=== PATIENT | male | born 1985 | race Caucasian/White ===

== ENCOUNTER 2017-01-26 22:00 | Emergency (ER) | payer OTHER ==
[~2017-01-26] VITALS: Ht 172.7 cm; Wt 82.0 kg
[2017-01-26 22:10] VITALS: Ht 172.7 cm; Wt 82.0 kg
[2017-01-26] MEDS ORDERED: SOD CHLORIDE 0.9% 1,000 ML IV STA (22:48)
[2017-01-26] MEDS ORDERED: ONDANSETRON 4 MG INJ IV STA (22:48)
[2017-01-26] MEDS ORDERED: ACETAMINOPHEN 500 MG TAB PO STA (22:48)
[2017-01-26] MEDS ORDERED: morphine 2 MG INJ IV STA (22:48)
--- NOTE | 2017-01-26 22:55 | ERD ---
ER Documentation Chief Complaint Date/Time DATE: 01/26/17 TIME: 22:53 Chief Complaint fever/abd pain x 1 day HPI 31-year-old male comes in with history of fever, and low right lower quadrant abdominal pain that started this morning. He states it is gradually gotten worse and is radiating to the left lower quadrant, achy, moderate to severe pain. He states that the last time he ate anything was ice cream at around 7 PM , he has had decrease in appetite. He has not had any nausea, vomiting, diarrhea. Denies testicular pain. ROS All systems reviewed and are negative except as per history of present illness. Medications Home Meds Active Scripts Ibuprofen* (Motrin*) 600 Mg Tab, 600 MG PO Q6, #30 TAB Prov:CHITRA ROSARIO PA-C 01/27/17 Hydrocodone/Acetaminophen ([place] 5-325 Tablet) 1 Each Tablet, 1 TAB PO Q6H Y for PAIN, #7 TAB Prov:CHITRA ROSARIO PA-C 01/27/17 Ondansetron (Ondansetron Odt) 4 Mg Tab.rapdis, 4 MG PO Q6H Y for NAUSEA AND/OR VOMITING, #10 TAB Prov:CHITRA ROSARIO PA-C 01/27/17 Allergies Allergies: Coded Allergies: No Known Drug Allergies (Verified Allergy, Unknown, 01/26/17) PMhx/Soc Medical and Surgical Hx: pt denies Medical Hx, pt denies Surgical Hx Hx Alcohol Use: No Hx Substance Use: No Hx Tobacco Use: Yes (1 pack per day) Smoking Status: Current every day smoker Physical Exam Vitals Vital Signs Date Time Temp Pulse Resp B/P Pulse Ox O2 Delivery O2 Flow Rate FiO2 01/27/17 00:49 94 16 101/52 94 Room Air 01/26/17 22:10 101.1 109 20 108/55 99 Physical Exam General: Well-developed, well-nourished. The patient appears in no acute distress. HEENT: Head is normocephalic, atraumatic. No scleral icterus. Neck: Supple. Nontender. Lungs: Clear to auscultation. Normal air movement. Heart: Regular rate and rhythm. S1 and S2 are normal. No murmurs, gallops, or rubs. Abdomen: Soft, patient is tender in the right lower quadrant with peritoneal signs, rebound pain, nondistended. Bowel sounds are normoactive. Extremities: No clubbing or cyanosis. Normal pulses. Moving extremities x 4. No weakness. Neurologic: Alert and oriented 3. No focal deficits. Skin: Normal turgor. No rash or lesions. Result Diagram: 01/26/17 2310 01/26/17 2310 Results 24 hrs Laboratory Tests Test 01/26/17 23:10 White Blood Count 18.610^3/ul Red Blood Count 4.0010^6/ul Hemoglobin 12.8g/dl Hematocrit 36.3% Mean Corpuscular Volume 90.8fl Mean Corpuscular Hemoglobin 32.0pg Mean Corpuscular Hemoglobin Concent 35.3g/dl Red Cell Distribution Width 12.9% Platelet Count 08241^3/UL Mean Platelet Volume 11.6fl Neutrophils % 82.4% Lymphocytes % 10.2% Monocytes % 6.7% Eosinophils % 0.0% Basophils % 0.2% Nucleated Red Blood Cells % 0.0/100WBC Neutrophils # 15.310^3/ul Lymphocytes # 1.910^3/ul Monocytes # 1.310^3/ul Eosinophils # 0.010^3/ul Basophils # 0.010^3/ul Nucleated Red Blood Cells # 0.010^3/ul Urine Color YELLOW Urine Clarity SLIGHTLY CLOUDY Urine pH 5.0 Urine Specific [place] 1.026 Urine Ketones NEGATIVEmg/dL Urine Nitrite NEGATIVEmg/dL Urine Bilirubin NEGATIVEmg/dL Urine Urobilinogen NEGATIVEmg/dL Urine Leukocyte Esterase NEGATIVELeu/ul Urine Microscopic RBC 15/HPF Urine Microscopic WBC 3/HPF Urine Hemoglobin 3+mg/dL Urine Glucose NEGATIVEmg/dL Urine Total Protein NEGATIVEmg/dl Sodium Level 140mmol/L Potassium Level 3.8mmol/L Chloride Level 104mmol/L Carbon Dioxide Level 25mmol/L Anion Gap 15 Blood Urea Nitrogen 12mg/dl Creatinine 0.85mg/dl Glucose Level 99mg/dl Calcium Level 9.8mg/dl Total Bilirubin 1.3mg/dl Direct Bilirubin 0.00mg/dl Indirect Bilirubin 1.3mg/dl Aspartate Amino Transf (AST/SGOT) 30IU/L Alanine Aminotransferase (ALT/SGPT) 26IU/L Alkaline Phosphatase 68IU/L Total Protein 7.9g/dl Albumin 4.8g/dl Globulin 3.10g/dl Albumin/Globulin Ratio 1.54 Lipase 108U/L Current Medications Medications (Trade) Dose Ordered Sig/Arlyn Route PRN Reason Start Time Stop Time Status Last Admin Dose Admin Sodium Chloride (NS) 1,000 ml @ 1,000 mls/hr Q1H STAT IV 01/26/17 22:48 01/26/17 23:47 DC 01/26/17 23:20 Morphine Sulfate (morphine) 2 mg ONCE STAT IV 01/26/17 22:48 01/26/17 22:50 DC 01/26/17 23:20 Ondansetron HCl (Zofran Inj) 4 mg ONCE STAT IV 01/26/17 22:48 01/26/17 22:50 DC 01/26/17 23:20 Acetaminophen (Tylenol Tab) 1,000 mg ONCE STAT PO 01/26/17 22:48 01/26/17 22:51 DC 01/26/17 23:21 Morphine Sulfate (morphine) 4 mg ONCE STAT IV 01/27/17 01:23 01/27/17 01:24 DC 01/27/17 01:27 Ondansetron HCl 4 mg 4 mg ONCE STAT IV 01/27/17 01:23 01/27/17 01:24 DC 01/27/17 01:42 Sodium Chloride (NS) 100 ml @ ud STK-MED ONCE .ROUTE 01/27/17 01:36 01/27/17 01:37 DC Iohexol (Omnipaque 300mg/ ml) 150 ml STK-MED ONCE .ROUTE 01/27/17 01:36 01/27/17 01:37 DC DIAGNOSTIC IMAGING REPORT Patient: SADIE LOPEZ : 1985 Age: 31 Sex: M MR #: [id number] DOS: 01/26/17 2248 Ordering MD: CHITRA ROSARIO PA-C Location: [facility] Room/Bed: PROCEDURE: CT abdomen and pelvis without contrast. CLINICAL INDICATION: Right lower quadrant pain TECHNIQUE: CT scan of the abdomen and pelvis without contrast was performed. Sagittal and coronal reformatted images were obtained from the axial source images. CTDI = 11.99 mGy; DLP = 779.30 mGy-cm COMPARISON: None. FINDINGS: Visualized lower thorax: Mild left greater than right lower lobe subsegmental atelectasis is present, slight elevation of the left hemidiaphragm is seen. There is no evidence for pleural effusion. Liver, gallbladder, pancreas and spleen: The liver is normal and size, contour and attenuation. There is no evidence for a liver mass or ductal dilatation. The gallbladder is unremarkable. No common bile duct abnormality is demonstrated. The pancreas is unremarkable. The spleen is normal in size. Adrenal glands and genitourinary system: The adrenal glands are normal bilaterally. The kidneys are normal and size, contour and attenuation with no evidence for masses, calculi or hydronephrosis. The ureters are unremarkable. No urinary bladder abnormality is demonstrated. The prostate gland is normal in size. The scrotum shows no abnormality. Gastrointestinal system: The stomach is normal in caliber with no abnormality of significance. A mild reactive type ileus of the jejunum is present without evidence of wall thickening or complete obstruction, the ileum is normal in caliber. The appendix and surrounding fat are within the limits of normal. The colon shows no evidence for wall thickening or acute abnormality. There is no evidence for colitis or diverticulitis. Peritoneum, retroperitoneum, lymph nodes and vessels: The abdominal aorta is normal in caliber. There is no evidence for atherosclerotic calcification. The inferior vena cava is unremarkable. There is no evidence for adenopathy or mass. There is no ascites. No pneumoperitoneum is present Osseous structures and musculoskeletal findings: There is no fracture, lytic or blastic lesion. No muscular abnormality or soft tissue pathology is present. RPTAT:HJJR IMPRESSION: 1. No evidence of appendicitis. 2. Mild nonspecific reactive ileus of the jejunum in the left upper quadrant without bowel wall thickening or obstruction. 3. Unremarkable genitourinary system without evidence of urinary tract calculi or hydronephrosis. Physician Renetta Date Time Electronically viewed and signed by Physician Renetta on 01/27/2017 00:38 JR/ CC: CHITRA ROSARIO PA-C DIAGNOSTIC IMAGING REPORT Patient: SADIE LOPEZ : 1985 Age: 31 Sex: M MR #: [id number] DOS: 01/27/17 0107 Ordering MD: CHITRA ROSARIO PA-C Location: [facility] Room/Bed: PROCEDURE: CHEST - 1 VIEW CLINICAL INDICATION: 31-year-old male with chest/abdominal pain and febrile. TECHNIQUE: A single frontal AP portable view of the chest was performed. The images were reviewed on a PACS workstation. COMPARISON: None. FINDINGS: The cardiomediastinal silhouette has a normal appearance. There is mild left basilar subsegmental atelectasis. There is no evidence for focal consolidation. There is no evidence for congestive heart failure. There is no evidence for pneumothorax. The osseous structures are intact. IMPRESSION: Mild left basilar subsegmental atelectasis. .Robby Barry MD, Date Time Electronically viewed and signed by .Robby Barry MD, on 01/27/2017 02:46 .M/ CC: CHITRA ROSARIO PA-C DIAGNOSTIC IMAGING REPORT Patient: SADIE LOPEZ : 1985 Age: 31 Sex: M MR #: [id number] DOS: 01/26/17 2248 Ordering MD: CHITRA ROSARIO PA-C Location: [facility] Room/Bed: PROCEDURE: CT abdomen and pelvis without contrast. CLINICAL INDICATION: Right lower quadrant pain TECHNIQUE: CT scan of the abdomen and pelvis without contrast was performed. Sagittal and coronal reformatted images were obtained from the axial source images. CTDI = 11.99 mGy; DLP = 779.30 mGy-cm COMPARISON: None. FINDINGS: Visualized lower thorax: Mild left greater than right lower lobe subsegmental atelectasis is present, slight elevation of the left hemidiaphragm is seen. There is no evidence for pleural effusion. Liver, gallbladder, pancreas and spleen: The liver is normal and size, contour and attenuation. There is no evidence for a liver mass or ductal dilatation. The gallbladder is unremarkable. No common bile duct abnormality is demonstrated. The pancreas is unremarkable. The spleen is normal in size. Adrenal glands and genitourinary system: The adrenal glands are normal bilaterally. The kidneys are normal and size, contour and attenuation with no evidence for masses, calculi or hydronephrosis. The ureters are unremarkable. No urinary bladder abnormality is demonstrated. The prostate gland is normal in size. The scrotum shows no abnormality. Gastrointestinal system: The stomach is normal in caliber with no abnormality of significance. A mild reactive type ileus of the jejunum is present without evidence of wall thickening or complete obstruction, the ileum is normal in caliber. The appendix and surrounding fat are within the limits of normal. The colon shows no evidence for wall thickening or acute abnormality. There is no evidence for colitis or diverticulitis. Peritoneum, retroperitoneum, lymph nodes and vessels: The abdominal aorta is normal in caliber. There is no evidence for atherosclerotic calcification. The inferior vena cava is unremarkable. There is no evidence for adenopathy or mass. There is no ascites. No pneumoperitoneum is present Osseous structures and musculoskeletal findings: There is no fracture, lytic or blastic lesion. No muscular abnormality or soft tissue pathology is present. RPTAT:HJJR IMPRESSION: 1. No evidence of appendicitis. 2. Mild nonspecific reactive ileus of the jejunum in the left upper quadrant without bowel wall thickening or obstruction. 3. Unremarkable genitourinary system without evidence of urinary tract calculi or hydronephrosis. Physician Renetta Date Time Electronically viewed and signed by Physician Renetta on 01/27/2017 00:38 JR/ DIAGNOSTIC IMAGING REPORT Patient: SADIE LOPEZ : 1985 Age: 31 Sex: M MR #: [id number] DOS: 01/27/17 0114 Ordering MD: CHITRA ROSARIO PA-C Location: [facility] Room/Bed: PROCEDURE: CT ABDOMEN/PELVIS WITH CONTRAST CLINICAL INDICATION: 31-year-old male with abdominal pain. TECHNIQUE: The study was performed utilizing a [employer] 64-slice CT scanner. Direct axial sections were obtained through the abdomen and pelvis with the use of 100 cc of Omnipaque-300 nonionic intravenous contrast material. Sagittal and coronal reformations were obtained. One or more of the following dose reduction techniques were utilized: automated exposure control, adjustment of the mA and/or kV according to patient's size or use of iterative reconstruction technique. The images were reviewed on a PACS workstation. CTD/ vol = 12.6 mGy; Total Exam DLP = 828.1 mGy-cm. COMPARISON: CT abdomen/pelvis noncontrast January 27, 2017; ultrasound right upper quadrant January 27, 2017. FINDINGS: There is minimal bibasilar subsegmental atelectasis. There is no evidence for significant pleural effusion. The liver has a normal size and contour without focal areas of abnormal density or contrast enhancement. No intrahepatic nor extrahepatic biliary ductal dilatation is seen. The gallbladder demonstrates no wall thickening nor pericholecystic fluid. No biliary stones are evident. The pancreas is without areas of abnormal attenuation or contrast enhancement. This spleen is identified and has a normal size without abnormal density or contrast enhancement. The adrenal glands are unremarkable. The kidneys are functional bilaterally without abnormal density. No hydroureteronephrosis nor nephroureterolithiasis is evident. The urinary bladder contains urine. There is a small umbilical hernia with an opening of 6 x 7 mm containing fat. There is mildly dilated fluid-filled loops of small bowel without evidence for transition point. This is suggestive of an enteritis. There is mild retained stool identified throughout the colon. The appendix is visualized and is without edema or surrounding inflammatory reaction. There is no significant free fluid. The aortoiliac vessels are without aneurysmal dilatation. The osseous structures are intact. There appear to be diffuse short pedicles suggestive of congenital spinal stenosis. IMPRESSION: 1. Mildly dilated fluid-filled loops of small bowel without evidence for obstruction. This is suggestive of an enteritis. Clinical correlation is necessary. 2. Mild retained stool throughout the colon. 3. No CT evidence for appendicitis. 4. Probable congenital mild spinal stenosis. .Robby Barry MD, MD Date Time Electronically viewed and signed by .Robby Barry MD, MD on 01/27/2017 02:44 .M/ CC: CHITRA ROSARIO PA-C Procedures/[facility] ED course: He was kept n.p.o. Labs and urine were obtained. Patient was given morphine 4 mg, Zofran 4 mg IV as well as fluid bolus of normal saline 1 L. Before getting a gallbladder ultrasound study, patient was given another third morphine 4 mg, Zofran 4 mg IV for pain The patient's abdominal pain was reexamined. Patient was sitting comfortably with improved pain. Patient was not in any distress. Medical decision making: This is a 31-year-old male who comes in with a fever, right lower quadrant pain for 1 day, differential diagnosis includes gastroenteritis, enteritis, colitis, Geodon abscess, diverticulitis, acute cholecystitis, pancreatitis, pneumonia. Patient's abdominal examination does show right lower quadrant pain and periumbilical pain, CT of the abdomen was performed without contrast, no evidence of acute appendicitis. This was discussed with my attending physician given his white count on presentation right lower quadrant pain and was suggested to order CT abdomen pelvis with IV contrast, additionally to do a gallbladder ultrasound study and a chest x-ray. Patient's tachycardia is likely due to febrile illness, he was treated with Tylenol, and tachycardia resolved. Chest x-ray shows atelectasis, no evidence of pneumonia, gallbladder ultrasound was unremarkable. White blood cell count was elevated 18,000, likely due to pain, as well as a viral process. Liver enzymes normal, lipase was normal. Urine was negative for infection. At this time patient is resting comfortably, he has no peritoneal signs or guarding, and feels comfortable being discharged at this being discharged. The case was reviewed and discussed with Dr. Wynne who agrees with the plan of care including labs, treatment, and advanced imaging as appropriate. Departure Diagnosis: Primary Impression: Abdominal pain Additional Impression: Leukocytosis Condition: Good CHITRA ROSARIO PA-C Jan 26, 2017 22:54
[2017-01-26 23:44] LABS: ADD SCAN DIFF NO
[2017-01-26 23:47] LABS: BASOPHILS % 0.2 % (0.0-2.0); HEMATOCRIT 36.3 % (42.0-52.0); HEMOGLOBIN 12.8 g/dl (14.0-18.0); LYMPHOCYTES # 1.9 10^3/ul (0.8-2.9); LYMPHOCYTES % 10.2 % (15.0-51.0); MEAN CORPUSCULAR HGB CONC 35.3 g/dl (32.0-37.0); MEAN CORPUSCULAR VOLUME 90.8 fl (82.0-101.0); MEAN PLATELET VOLUME 11.6 fl (7.4-10.4); MONOCYTE # 1.3 10^3/ul (0.3-0.9); MONOCYTES % 6.7 % (0.0-11.0); NEUTROPHIL # 15.3 10^3/ul (1.6-7.5); NEUTROPHILS % 82.4 % (39.0-77.0); PLATELET COUNT 150 10^3/UL (140-415); RED CELL DISTRIBUTION WIDTH 12.9 % (11.5-14.5); WHITE BLOOD COUNT 18.6 10^3/ul (4.8-10.8)
[2017-01-27] LABS: ADD UMIC YES; UR ASCORBIC ACID NEGATIVE (NEGATIVE); UR BILIRUBIN (Dip) NEGATIVE (NEGATIVE); UR BLOOD (Dip) 3+ mg/dL (NEGATIVE); UR CLARITY SLIGHTLY CLOUDY (CLEAR); UR COLOR YELLOW (YELLOW); UR GLUCOSE (Dip) NEGATIVE (NEGATIVE); UR KETONES (Dip) NEGATIVE (NEGATIVE); UR LEUKOCYTE ESTERASE (Dip) NEGATIVE Leu/ul (NEGATIVE); UR NITRITE (Dip) NEGATIVE (NEGATIVE); UR RBC 15 /HPF (0-5); UR SPECIFIC GRAVITY (Dip) 1.026 (1.003-1.030); UR TOTAL PROTEIN (Dip) NEGATIVE (NEGATIVE); UR UROBILINOGEN (Dip) NEGATIVE (NEGATIVE)
[2017-01-27 00:15] LABS: ALBUMIN 4.8 g/dl (3.3-4.9); ALBUMIN/GLOBULIN RATIO 1.54; BILIRUBIN,INDIRECT 1.3 mg/dl (0-1.1); BILIRUBIN,TOTAL 1.3 mg/dl (0.2-1.3); CALCIUM 9.8 mg/dl (8.4-10.2); CREATININE 0.85 mg/dl (0.61-1.24); POTASSIUM 3.8 mmol/L (3.5-5.1); TOTAL PROTEIN 7.9 g/dl (6.1-8.1)
--- NOTE | 2017-01-27 00:38 | RADRPT ---
PROCEDURE: CT abdomen and pelvis without contrast. CLINICAL INDICATION: Right lower quadrant pain TECHNIQUE: CT scan of the abdomen and pelvis without contrast was performed. Sagittal and coronal reformatted images were obtained from the axial source images. CTDI = 11.99 mGy; DLP = 779.30 mGy-c m COMPARISON: None. FINDINGS: Visualized lower thorax: Mild left greater than right lower lobe subsegmental atelectasis is presen t, slight elevation of the left hemidiaphragm is seen. There is no evidence for pleural effusion. Liver, gallbladder, pancreas and spleen: The liver is normal and size, contour and attenuation. Th ere is no evidence for a liver mass or ductal dilatation. The gallbladder is unremarkable. No comm on bile duct abnormality is demonstrated. The pancreas is unremarkable. The spleen is normal in si ze. Adrenal glands and genitourinary system: The adrenal glands are normal bilaterally. The kidneys are normal and size, contour and attenuation with no evidence for masses, calculi or hydronephrosis. T he ureters are unremarkable. No urinary bladder abnormality is demonstrated. The prostate gland is normal in size. The scrotum shows no abnormality. Gastrointestinal system: The stomach is normal in caliber with no abnormality of significance. A m ild reactive type ileus of the jejunum is present without evidence of wall thickening or complete ob struction, the ileum is normal in caliber. The appendix and surrounding fat are within the limits o f normal. The colon shows no evidence for wall thickening or acute abnormality. There is no eviden ce for colitis or diverticulitis. Peritoneum, retroperitoneum, lymph nodes and vessels: The abdominal aorta is normal in caliber. The re is no evidence for atherosclerotic calcification. The inferior vena cava is unremarkable. There is no evidence for adenopathy or mass. There is no ascites. No pneumoperitoneum is present Osseous structures and musculoskeletal findings: There is no fracture, lytic or blastic lesion. No muscular abnormality or soft tissue pathology is present. RPTAT:HJJR IMPRESSION: 1. No evidence of appendicitis. 2. Mild nonspecific reactive ileus of the jejunum in the left upper quadrant without bowel wall thi ckening or obstruction. 3. Unremarkable genitourinary system without evidence of urinary tract calculi or hydronephrosis. Aurelio Reis, Physician Date Time Electronically viewed and signed by Aurelio Reis, Physician on 01/27/2017 00:38 JR/
[2017-01-27] MEDS ORDERED: ONDANSETRON 4 MG INJ IV STA (01:23)
[2017-01-27] MEDS ORDERED: morphine 4 MG/ML VIAL IV STA (01:23)
[2017-01-27] MEDS ORDERED: SOD CHLORIDE 0.9% 100 ML ONE (01:36)
[2017-01-27] MEDS ORDERED: IOHEXOL 300MG/ML 150 ML BTL ONE (01:36)
--- NOTE | 2017-01-27 02:44 | RADRPT ---
PROCEDURE: CT ABDOMEN/PELVIS WITH CONTRAST CLINICAL INDICATION: 31-year-old male with abdominal pain. TECHNIQUE: The study was performed utilizing a [employer] V[employer] 64-slice CT scanner. Direct axia l sections were obtained through the abdomen and pelvis with the use of 100 cc of Omnipaque-300 [place] onic intravenous contrast material. Sagittal and coronal reformations were obtained. One or more of the following dose reduction techniques were utilized: automated exposure control, adjustment of the mA and/or kV according to patient's size or use of iterative reconstruction technique. The images were reviewed on a PACS workstation. CTD/vol = 12.6 mGy; Total Exam DLP = 828.1 mGy-cm. COMPARISON: CT abdomen/pelvis noncontrast January 27, 2017; ultrasound right upper quadrant January 27, 2017. FINDINGS: There is minimal bibasilar subsegmental atelectasis. There is no evidence for significant pleural ef fusion. The liver has a normal size and contour without focal areas of abnormal density or contrast enhancement. No intrahepatic nor extrahepatic biliary ductal dilatation is seen. The gallbladder de monstrates no wall thickening nor pericholecystic fluid. No biliary stones are evident. The pancreas is without areas of abnormal attenuation or contrast enhancement. This spleen is identified and small s a normal size without abnormal density or contrast enhancement. The adrenal glands are unremarkabl e. The kidneys are functional bilaterally without abnormal density. No hydroureteronephrosis nor nep hroureterolithiasis is evident. The urinary bladder contains urine. There is a small umbilical herni a with an opening of 6 x 7 mm containing fat. There is mildly dilated fluid-filled loops of small carlos wel without evidence for transition point. This is suggestive of an enteritis. There is mild retained stool identified throughout the colon. The appendix is visualized and is without edema or surrounding inflammatory reaction. There is no significant free fluid. The aortoiliac vessels are w ithout aneurysmal dilatation. The osseous structures are intact. There appear to be diffuse short pe dicles suggestive of congenital spinal stenosis. IMPRESSION: 1. Mildly dilated fluid-filled loops of small bowel without evidence for obstruction. This is sugg estive of an enteritis. Clinical correlation is necessary. 2. Mild retained stool throughout the colon. 3. No CT evidence for appendicitis. 4. Probable congenital mild spinal stenosis. .Robby Barry MD, MD Date Time Electronically viewed and signed by .Robby Barry MD, MD on 01/27/2017 02:44 .M/
--- NOTE | 2017-01-27 02:45 | RADRPT ---
PROCEDURE: ULTRASOUND LIMITED ABDOMEN CLINICAL INDICATION: 31-year-old male with abdominal pain. TECHNIQUE: Multiple sonographic of the right upper quadrant of the abdomen were obtained. The imag es were reviewed on a PACS workstation. COMPARISON: CT abdomen/pelvis January 27, 2017. FINDINGS: The pancreas is not visualized secondary to overlying bowel gas. The liver displays normal echogenicity. The liver measures 15.0 cm in length. No evidence of intrah epatic biliary ductal dilatation is seen. The portal and hepatic veins are unremarkable. The gallbladder demonstrates no wall thickening, sludge, nor stones. No pericholecystic fluid is see n. The common bile duct measures 3.1 mm and is not dilated. The right kidney displays normal echogenicity. The right kidney measures 12.8 cm in maximal length. No caliectasis or hydronephrosis is seen. No free fluid is seen. IMPRESSION: Unremarkable right upper quadrant abdominal ultrasound. .Robby Barry MD, MD Date Time Electronically viewed and signed by .Robby Barry MD, on 01/27/2017 02:45 .M/
--- NOTE | 2017-01-27 02:46 | RADRPT ---
PROCEDURE: CHEST - 1 VIEW CLINICAL INDICATION: 31-year-old male with chest/abdominal pain and febrile. TECHNIQUE: A single frontal AP portable view of the chest was performed. The images were reviewed on a PACS workstation. COMPARISON: None. FINDINGS: The cardiomediastinal silhouette has a normal appearance. There is mild left basilar subsegmental at electasis. There is no evidence for focal consolidation. There is no evidence for congestive heart failure. There is no evidence for pneumothorax. The osseous structures are intact. IMPRESSION: Mild left basilar subsegmental atelectasis. .Robby Barry MD, MD Date Time Electronically viewed and signed by .Robby Barry MD, on 01/27/2017 02:46 .M/
[2017-01-27] MEDS ORDERED: HYDR-906 PO (02:50)
[2017-01-27] MEDS ORDERED: IBUP-1542 PO (02:50)
[2017-01-27] MEDS ORDERED: ONDA4TAB14 PO (02:50)
[2017-01-27 03:15] VITALS: BP 125/82; PULSE 76; RESP 20; TEMP 98.6
== END 2017-01-27 03:15 | disposition home or self-care (01) ==
LOC: FTE 22:00
DX: R10.31 Right lower quadrant pain (principal); D72.829 Elevated white blood cell count, unspecified; F17.210 Nicotine dependence, cigarettes, uncomplicated
CPT/HCPCS: 36415; 71010; 74176; 74177; 76705; 80053; 81001; 83690; 85025; 87040; 96374; 96375; 96376; J2270; J2405; J7030; Q9967; Z7502; Z7610

== ENCOUNTER 2017-02-08 20:55 | Emergency (ER) | payer BC, OTHER ==
[~2017-02-08] VITALS: Ht 170.2 cm; Wt 81.5 kg
[~2017-02-08 20:55] MED LIST: HYDR-906 PO; IBUP-1542 PO; ONDA4TAB14 PO
[2017-02-08 21:22] VITALS: Ht 170.2 cm; Wt 81.5 kg
[2017-02-08] MEDS ORDERED: KETOROLAC 30 MG INJ IM STA (21:48)
[2017-02-08] MEDS ORDERED: IPRATROPIUM (NEB) 0.5 MG/2.5 ML AMP INH STA (21:48)
[2017-02-08] MEDS ORDERED: ALBUTEROL 0.5% (NEB) 2.5 MG/0.5 ML AMP INH STA (21:48)
[2017-02-08] MEDS ORDERED: ACETAMINOPHEN 325 MG TAB PO ONE (22:00)
[2017-02-08 22:32] LABS: ADD SCAN DIFF NO
[2017-02-08 22:34] LABS: BASOPHIL # 0.1 10^3/ul (0.0-0.1); BASOPHILS % 0.3 % (0.0-2.0); HEMATOCRIT 36.7 % (42.0-52.0); HEMOGLOBIN 12.8 g/dl (14.0-18.0); MEAN CORPUSCULAR HEMOGLOBIN 31.8 pg (29.0-33.0); MEAN CORPUSCULAR HGB CONC 34.9 g/dl (32.0-37.0); MEAN CORPUSCULAR VOLUME 91.3 fl (82.0-101.0); MEAN PLATELET VOLUME 10.7 fl (7.4-10.4); NEUTROPHIL # 16.5 10^3/ul (1.6-7.5); NEUTROPHILS % 84.3 % (39.0-77.0); PLATELET COUNT 214 10^3/UL (140-415); RED BLOOD COUNT 4.02 10^6/ul (4.70-6.10); RED CELL DISTRIBUTION WIDTH 12.9 % (11.5-14.5); WHITE BLOOD COUNT 19.6 10^3/ul (4.8-10.8)
[2017-02-08 23:26] LABS: ALANINE AMINOTRANSFERASE 34 IU/L (13-69); ALBUMIN 5.1 g/dl (3.3-4.9); ALBUMIN/GLOBULIN RATIO 1.41; ALKALINE PHOSPHATASE 86 IU/L (42-121); ANION GAP 23 (8-16); ASPARTATE AMINO TRANSFERASE 31 IU/L (15-46); BLOOD UREA NITROGEN 16 mg/dl (7-20); CALCIUM 10.5 mg/dl (8.4-10.2); CARBON DIOXIDE 25 mmol/L (21-31); CHLORIDE 96 mmol/L (97-110); CREATININE 0.87 mg/dl (0.61-1.24); GLUCOSE 117 mg/dl (70-220); POTASSIUM 4.4 mmol/L (3.5-5.1); SODIUM 140 mmol/L (135-144); TOTAL PROTEIN 8.7 g/dl (6.1-8.1)
--- NOTE | 2017-02-08 23:33 | RADRPT ---
PROCEDURE: XR Chest. CLINICAL INDICATION: Chest pain. TECHNIQUE: Portable AP view of the chest was obtained. COMPARISON: 01/27/2017 FINDINGS: The cardiomediastinal silhouette is within normal limits. Bibasilar subsegmental atelectasis appear s slightly worse compared to the prior exam. There is no evidence for pleural effusion, pneumothora x or pulmonary vascular congestion. The osseous structures are intact with no evidence for acute ab normality. RPTAT:HJJR IMPRESSION: Worsening bibasilar subsegmental atelectasis compared to 01/27/2017. Physician Renetta Date Time Electronically viewed and signed by Aurelio Reis Physician on 02/08/2017 23:32 /
[2017-02-08 23:37] LABS: TROPONIN-I < 0.012 ng/ml (0.00-0.12)
[2017-02-09] MEDS ORDERED: SODIUM CHLORIDE 0.9% 1L BAG IV* STA (00:08)
[2017-02-09] MEDS ORDERED: ONDANSETRON 4 MG INJ IV STA (00:14)
[2017-02-09] MEDS ORDERED: morphine 4 MG/ML VIAL IV STA (00:14)
[2017-02-09] MEDS ORDERED: PIPER-TAZO 3.375 GM IV (PMX) 100 ML IVPB ONE (00:30)
[2017-02-09] MEDS ORDERED: SOD CHLORIDE 0.9% 100 ML ONE ×2 (00:41→01:53)
[2017-02-09] MEDS ORDERED: IOHEXOL 100 ML ONE ×2 (00:41→01:53)
[2017-02-09 01:20] LABS: INR 0.98
[2017-02-09 01:21] LABS: PARTIAL THROMBOPLASTIN TIME 31.9 Sec (25.0-35.0)
--- NOTE | 2017-02-09 02:38 | RADRPT ---
PROCEDURE: CTA Chest CLINICAL INDICATION: Chest pain. Suspected pulmonary embolus. TECHNIQUE: Thin section spiral CT images were obtained through the vasculature of the chest during administration of 90 cc of Omnipaque 350 contrast material. Multiplanar reconstructions and 3-D ma ximum intensity projection reconstructed images were performed. The images were reviewed on a PACS workstation. The total exam CTDI equals 12.6 mGy, and the total exam DLP equals 501.21 mGy-cm. On e or more of the following dose reduction techniques were used: automated exposure control, adjustme nt of the mA and/or kV according to patient size, or use of iterative reconstruction technique. COMPARISON: Chest x-ray from 02/08 FINDINGS: Moderate dependent atelectasis of the lungs is seen. No focal infiltrate or pleural effusion is see n. No pericardial effusion is seen. No hilar or mediastinal adenopathy is seen. There is no defini te evidence for pulmonary embolus or aortic dissection. There is slight artifact in the upper lobe p ulmonary vasculature. Visualized portions of the upper abdomen are unremarkable. No bony abnormali ty is seen. IMPRESSION: No evidence for pulmonary embolus or aortic dissection. No definite acute disease. RPTAT: [facility] Physician Darin Date Time Electronically viewed and signed by Physician Darin on 02/09/2017 02:37 LE/
[2017-02-09] MEDS ORDERED: AZIT250T94 PO (03:28)
[2017-02-09] MEDS ORDERED: ALBU18HF INHALATION (03:31)
[2017-02-09 04:05] LABS: ADD UMIC YES; UR ASCORBIC ACID NEGATIVE (NEGATIVE); UR BILIRUBIN (Dip) NEGATIVE (NEGATIVE); UR BLOOD (Dip) 3+ mg/dL (NEGATIVE); UR CLARITY SLIGHTLY CLOUDY (CLEAR); UR COLOR YELLOW (YELLOW); UR GLUCOSE (Dip) NEGATIVE (NEGATIVE); UR KETONES (Dip) NEGATIVE (NEGATIVE); UR LEUKOCYTE ESTERASE (Dip) NEGATIVE Leu/ul (NEGATIVE); UR MUCUS FEW /HPF (NONE SEEN); UR NITRITE (Dip) NEGATIVE (NEGATIVE); UR RBC 9 /HPF (0-5); UR SPECIFIC GRAVITY (Dip) 1.026 (1.003-1.030); UR TOTAL PROTEIN (Dip) NEGATIVE (NEGATIVE); UR UROBILINOGEN (Dip) NEGATIVE (NEGATIVE)
[2017-02-09 05:02] VITALS: BP 120/65; PULSE 81; RESP 18; TEMP 98.9
--- NOTE | 2017-02-09 05:15 | ERD ---
ER Documentation Chief Complaint Date/Time DATE: 02/09/17 TIME: 05:06 Chief Complaint CP x 6 months seen by PMD diagnosed w/PNA HPI This patient is a 31-year-old male presenting to the emergency department with complaints of intermittent chest pain ongoing for the past 6 months. The patient has had multiple workups for similar symptoms with unclear diagnostic impressions. I one time he was told he had pneumonia by his primary care physician. He has been to this emergency department and [facility] and been worked up for abdominal pain as well. The patient presents today with worsening shortness of breath over the past 3 days. Also has right-sided chest pain. Chest pain radiates to the back. He was diagnosed with pneumonia 6 months ago and took antibiotics and the symptoms resolved. Shortness of breath symptoms are worse on exertion. He denies any significant cough, nausea, vomiting, diarrhea, or other symptoms. ROS All systems reviewed and are negative except as per history of present illness. Medications Home Meds Active Scripts Albuterol Sulfate* (Ventolin HFA*) 18 Gm Hfa.aer.ad, 2 PUFF INHALATION Q4H, #1 INHALER Prov:HARSH PEREYRA PA-C 02/09/17 Azithromycin* (Zithromax*) 250 Mg Tablet, 250 MG PO .ZPACK DIRECTED, #6 TAB TAKE 500 MG (2 TABS) THE FIRST DAY THEN 250 MG (1 TAB) DAYS 2-5 Prov:HARSH PEREYRA PA-C 02/09/17 Ibuprofen* (Motrin*) 600 Mg Tab, 600 MG PO Q6, #30 TAB Prov:CHITRA ROSARIO PA-C 01/27/17 Hydrocodone/Acetaminophen ([place] 5-325 Tablet) 1 Each Tablet, 1 TAB PO Q6H Y for PAIN, #7 TAB Prov:CHITRA ROSARIO PA-C 01/27/17 Ondansetron (Ondansetron Odt) 4 Mg Tab.rapdis, 4 MG PO Q6H Y for NAUSEA AND/OR VOMITING, #10 TAB Prov:CHITRA ROSARIO PA-C 01/27/17 Allergies Allergies: Coded Allergies: No Known Drug Allergies (Verified Allergy, Unknown, 01/26/17) PMhx/Soc Medical and Surgical Hx: pt denies Medical Hx, pt denies Surgical Hx History of Surgery: No (DENIES MEDICAL AND SURGICAL HX.) Hx Alcohol Use: No Hx Substance Use: No Hx Tobacco Use: Yes (1 pack per day) Smoking Status: Current every day smoker Physical Exam Vitals Vital Signs Date Time Temp Pulse Resp B/P Pulse Ox O2 Delivery O2 Flow Rate FiO2 02/09/17 05:02 98.9 81 18 120/65 97 Room Air 02/09/17 01:32 Nasal Cannula 2 02/08/17 22:05 117 18 96 21 02/08/17 21:22 101.0 116 18 122/70 96 Physical Exam Const: Nontoxic, well-appearing male in no acute distress. Head: Atraumatic Eyes: Normal Conjunctiva ENT: Normal External Ears, Nose and Mouth. Neck: Full range of motion..~ No meningismus. Resp: Shallow inspiratory effort but clear to auscultation bilaterally. Cardio: Regular rate and rhythm, no murmurs Abd: Soft, non tender, non distended. Normal bowel sounds Skin: No petechiae or rashes Back: No midline or flank tenderness Ext: No cyanosis, or edema Neur: Awake and alert Psych: Normal Mood and Affect Result Diagram: 02/08/17222402/08/172224 Results 24 hrs Laboratory Tests Test 02/08/17 22:25 02/08/17 22:30 02/09/17 00:17 02/09/17 00:30 White Blood Count 19.610^3/ul Red Blood Count 4.0210^6/ul Hemoglobin 12.8g/dl Hematocrit 36.7% Mean Corpuscular Volume 91.3fl Mean Corpuscular Hemoglobin 31.8pg Mean Corpuscular Hemoglobin Concent 34.9g/dl Red Cell Distribution Width 12.9% Platelet Count 88051^3/UL Mean Platelet Volume 10.7fl Neutrophils % 84.3% Lymphocytes % 10.0% Monocytes % 5.0% Eosinophils % 0.0% Basophils % 0.3% Nucleated Red Blood Cells % 0.0/100WBC Neutrophils # 16.510^3/ul Lymphocytes # 2.010^3/ul Monocytes # 1.010^3/ul Eosinophils # 0.010^3/ul Basophils # 0.110^3/ul Nucleated Red Blood Cells # 0.010^3/ul Sodium Level 140mmol/L Potassium Level 4.4mmol/L Chloride Level 96mmol/L Carbon Dioxide Level 25mmol/L Anion Gap 23 Blood Urea Nitrogen 16mg/dl Creatinine 0.87mg/dl Glucose Level 117mg/dl Calcium Level 10.5mg/dl Total Bilirubin 1.0mg/dl Direct Bilirubin 0.00mg/dl Indirect Bilirubin 1.0mg/dl Aspartate Amino Transf (AST/SGOT) 31IU/L Alanine Aminotransferase (ALT/SGPT) 34IU/L Alkaline Phosphatase 86IU/L Troponin I < 0.012ng/ml Total Protein 8.7g/dl Albumin 5.1g/dl Globulin 3.60g/dl Albumin/Globulin Ratio 1.41 B-Type Natriuretic Peptide 35PG/ML Prothrombin Time 13.0Sec Prothrombin Time Ratio 1.0 INR International Normalized Ratio 0.98 Activated Partial Thromboplast Time 31.9Sec Lactic Acid Level 1.5mmol/L Urine Color YELLOW Urine Clarity SLIGHTLY CLOUDY Urine pH 5.0 Urine Specific [place] 1.026 Urine Ketones NEGATIVEmg/dL Urine Nitrite NEGATIVEmg/dL Urine Bilirubin NEGATIVEmg/dL Urine Urobilinogen NEGATIVEmg/dL Urine Leukocyte Esterase NEGATIVELeu/ul Urine Microscopic RBC 9/HPF Urine Microscopic WBC 0/HPF Urine Mucus FEW/HPF Urine Hemoglobin 3+mg/dL Urine Glucose NEGATIVEmg/dL Urine Total Protein NEGATIVEmg/dl Test 02/09/17 02:30 Lactic Acid Level 0.6mmol/L Current Medications Medications (Trade) Dose Ordered Sig/Arlyn Route PRN Reason Start Time Stop Time Status Last Admin Dose Admin Albuterol (Proventil 0.5% (Neb)) 5 mg ONCE STAT INH 02/08/17 21:48 02/08/17 21:52 DC 02/08/17 22:05 Ipratropium [place] (Atrovent 0.02% (Neb)) 1 mg ONCE STAT INH 02/08/17 21:48 02/08/17 21:52 DC 02/08/17 22:05 Ketorolac Tromethamine (Toradol) 30 mg ONCE STAT IM 02/08/17 21:48 02/08/17 21:52 DC 02/08/17 22:40 Acetaminophen (Tylenol Tab) 650 mg ONCE ONCE PO 02/08/17 22:00 02/08/17 22:01 DC 02/08/17 22:39 Sodium Chloride 2530 ml 2,530 ml BOLUS OVER 2 HOURS STAT IV* 02/09/17 00:08 02/09/17 00:11 DC 02/09/17 00:43 Piperacillin Sod/ Tazobactam Sod (Zosyn 3.375gm/ 100 ml (Pmx)) 100 ml @ 200 mls/hr ONCE ONCE IVPB 02/09/17 00:30 02/09/17 00:59 DC 02/09/17 01:09 Morphine Sulfate (morphine) 4 mg ONCE STAT IV 02/09/17 00:14 02/09/17 00:17 DC 02/09/17 01:08 Ondansetron HCl (Zofran Inj) 4 mg ONCE STAT IV 02/09/17 00:14 02/09/17 00:17 DC 02/09/17 01:08 IV Flush 10 ml 10 ml STK-MED ONCE .ROUTE 02/09/17 00:41 02/09/17 00:42 DC 02/09/17 01:27 Sodium Chloride 100 ml @ ud STK-MED ONCE .ROUTE 02/09/17 00:41 02/09/17 00:42 DC 02/09/17 01:27 Iohexol (Omnipaque) 100 ml @ ud STK-MED ONCE .ROUTE 02/09/17 00:41 02/09/17 00:42 DC 02/09/17 01:28 IV Flush 10 ml 10 ml STK-MED ONCE .ROUTE 02/09/17 01:53 02/09/17 01:54 DC 02/09/17 02:05 Sodium Chloride 100 ml @ ud STK-MED ONCE .ROUTE 02/09/17 01:53 02/09/17 01:54 DC 02/09/17 02:05 Iohexol (Omnipaque) 100 ml @ ud STK-MED ONCE .ROUTE 02/09/17 01:53 02/09/17 01:54 DC 02/09/17 02:05 [place] [address] Radiology Main Line: [phone] DIAGNOSTIC IMAGING REPORT Patient: SADIE LOPEZ : 1985 Age: 31 Sex: M MR #: [id number] DOS: 02/09/17 0000 Ordering MD: HARSH PEREYRA PA-C [facility] Room/Bed: PROCEDURE: CTA Chest CLINICAL INDICATION: Chest pain. Suspected pulmonary embolus. TECHNIQUE: Thin section spiral CT images were obtained through the vasculature of the chest during administration of 90 cc of Omnipaque 350 contrast material. Multiplanar reconstructions and 3-D maximum intensity projection reconstructed images were performed. The images were reviewed on a PACS workstation. The total exam CTDI equals 12.6 mGy, and the total exam DLP equals 501.21 mGy-cm. One or more of the following dose reduction techniques were used: automated exposure control, adjustment of the mA and/or kV according to patient size, or use of iterative reconstruction technique. COMPARISON: Chest x-ray from 02/08 FINDINGS: Moderate dependent atelectasis of the lungs is seen. No focal infiltrate or pleural effusion is seen. No pericardial effusion is seen. No hilar or mediastinal adenopathy is seen. There is no definite evidence for pulmonary embolus or aortic dissection. There is slight artifact in the upper lobe pulmonary vasculature. Visualized portions of the upper abdomen are unremarkable. No bony abnormality is seen. IMPRESSION: No evidence for pulmonary embolus or aortic dissection. No definite acute disease. RPTAT: [facility] Physician Darin Date Time Electronically viewed and signed by Mikayla Gil Physician on 02/09/2017 02 :37 LE/ CC: HARSH PEREYRA PA-C PROCEDURE: XR Chest. CLINICAL INDICATION: Chest pain. TECHNIQUE: Portable AP view of the chest was obtained. COMPARISON: 01/27/2017 FINDINGS: The cardiomediastinal silhouette is within normal limits. Bibasilar subsegmental atelectasis appears slightly worse compared to the prior exam. There is no evidence for pleural effusion, pneumothorax or pulmonary vascular congestion. The osseous structures are intact with no evidence for acute abnormality. RPTAT:HJJR IMPRESSION: Worsening bibasilar subsegmental atelectasis compared to 01/27/2017. Procedures/MDM EMERGENCY DEPARTMENT COURSE / MEDICAL DECISION MAKING: This is a 31-year-old male who comes to the emergency room secondary to complaints of shortness of breath, chest pain, and headache. The patient was given IV fluids, IV morphine, albuterol and ipratropium breathing treatment In the department. On re-evaluation, the patient was feeling improved. The patient was given IV Zosyn. He was given IV fluids to meet sepsis criteria. He was given p.o. Tylenol for fever. He was given IV Toradol for pain. Lab results reviewed. CBC: Leukocytosis of 19.6 with left shift Chemistry: No significant acute abnormalities UA: Not concerning for urinary tract infection Lipase: Within normal limits Lactate: Within normal limits, repeat lactate: Within normal limits Radiology: CT chest angiogram: IMPRESSION: No evidence for pulmonary embolus or aortic dissection. No definite acute disease. EKG: Interpreted by ED physician, Dr. Carmelita Arguello. Rate/Rhythm: Sinus tachycardia with a rate of 118 bpm. QRS, ST, T-waves: No changes consistent w/ acute ischemia Impression: No evidence of ischemia or arrhythmia Diagnostic impression: The primary diagnosis is shortness of breath with unclear etiology. Secondary diagnosis is upper respiratory infection I have low suspicion for aortic dissection, pleural effusion, pneumothorax, acute coronary syndrome, pulmonary embolism, sepsis, or other emergent conditions at this time. Discharge: I have discussed the lab results and diagnostic findings with the patient and answered any questions or concerns. The patient was discharged with a prescription for albuterol and azithromycin. The patient was advised to followup with their PMD in 1-2 days and to return to the Emergency Department if there are any new or worsening symptoms. The patient understood and agreed with the diagnosis, treatment and plan. The patient is stable for discharge at this time. I discussed this case with my supervising physician Dr. Carmelita Arguello, who helped guide the ED course and agreed overall with the assessment and plan. Departure Diagnosis: Primary Impression: Shortness of breath Additional Impression: Upper respiratory infection Condition: Fair Patient Instructions: Preventing Common Respiratory Infections Additional Instructions: Follow up with your PCP within the next 1-3 days for a repeat evaluation. If you require a referral to a specialist, your Primary Care Provider may be able to provide this for you. In most patient cases, a referral is not required. If you have further questions regarding this matter, please ask your Primary Care Provider. Return the the emergency department immediately if symptoms worsen or change. If you have any questions regarding medications, ask your pharmacist or us before you leave. If any adverse reactions, occur while taking your medications, discontinue the treatment and return to the emergency department immediately. If any new or worsening symptoms, uncontrolled fevers, or other unexplained symptoms occur, return to the emergency department immediately. Take your medications as directed, and complete the entire course of treatment. HARSH PEREYRA PA-C Feb 09, 2017 05:15
== END 2017-02-09 05:04 | disposition home or self-care (01) ==
LOC: FTE 20:55
DX: R06.02 Shortness of breath (principal); J06.9 Acute upper respiratory infection, unspecified; F17.210 Nicotine dependence, cigarettes, uncomplicated
CPT/HCPCS: 36415; 71010; 71275; 80053; 81001; 83605; 83880; 84484; 85025; 85610; 85730; 87040; 87086; 93005; 94664; 96372; 96374; 96375; J1885; J2270; J2405; J2543; J7030; Q9967; Z7502; Z7610